=== PATIENT | male | born 1970 | race Asian ===

== ENCOUNTER 2019-12-03 10:04 | Emergency (ER) | payer MEDICAID, OTHER ==
[~2019-12-03] VITALS: Ht 160 cm; Wt 63.6 kg
[2019-12-03 12:34] LABS: BASOPHILS % (AUTO) 0.7 % (0.0-2.0); EOSINOPHILS % (AUTO) 6.5 % (1.0-6.0); HEMATOCRIT 43.2 % (41-53); HEMOGLOBIN 13.6 g/dL (13.5-17.5); LYMPHOCYTES # (AUTO) 1.2 K/uL (1.0-4.8); MEAN CORPUSCULAR HEMOGLOBIN 22.3 pg (26.0-34.0); MEAN CORPUSCULAR HGB CONC 31.6 G/dL (31.0-37.0); MEAN CORPUSCULAR VOLUME 71 fL (80-100); MONOCYTES # (AUTO) 0.5 K/uL (0.1-1.0); MONOCYTES % (AUTO) 10.6 % (2.0-9.0); NEUTROPHILS # (AUTO) 2.5 K/uL (1.8-7.7); NEUTROPHILS % (AUTO) 55.2 % (40.0-70.0); PLATELET COUNT (AUTO) 276 K/uL (150-450); RED BLOOD CELL COUNT(AUTO) 6.12 MIL/uL (4.50-5.90); RED CELL DISTRIBUTION WIDTH 15.5 % (11.5-14.5)
[2019-12-03 12:43] LABS: ANION GAP 3 mmol/L (8-16); CALCIUM, TOTAL 8.5 mg/dL (8.8-10.5); CARBON DIOXIDE 31 mmol/L (22-29); CHLORIDE 103 mmol/L (98-107); CREATININE 1.26 mg/dL (0.60-1.30); GLOMERULAR FILTR. RATE CALC > 60 mL/min (>60); GLUCOSE,RANDOM 122 mg/dL (70-110); POTASSIUM 3.6 mmol/L (3.5-5.1); SODIUM SERUM 137 mmol/L (136-145); UREA NITROGEN, BLOOD 14 mg/dL (7-18)
[2019-12-03 12:49] LABS: ALANINE AMINOTRANSFERASE 28 U/L (12-78); ALBUMIN 3.8 g/dL (3.4-5.0); ALKALINE PHOSPHATASE 92 U/L (46-116); ASPARTATE AMINOTRANSFERASE 14 U/L (15-37); BILIRUBIN,TOTAL 0.7 mg/dL (0.1-1.0)
[2019-12-03 12:53] VITALS: BP 118/59
== END 2019-12-03 12:47 | disposition left against medical advice (07) ==
LOC: EMS 10:10
DX: R45.6 Violent behavior (principal); F20.9 Schizophrenia, unspecified
CPT/HCPCS: 36415; 80053; 85025; 99283; G0480

== ENCOUNTER 2019-12-09 13:55 | Inpatient (IN) | payer MEDICAID, OTHER ==
[~2019-12-09] VITALS: Ht 160 cm; Wt 83.5 kg
[2019-12-09] MEDS ORDERED: LIDOCAINE 1% 10 ML VIAL INJ ONE (14:45)
[2019-12-09] MEDS ORDERED: HALOPERIDOL 5 MG TABLET PO PRN (17:45)
[2019-12-09] MEDS ORDERED: ZOLPIDEM TARTRATE 10 MG TABLET PO PRN (17:45)
[2019-12-09 21:54] VITALS: BP 130/77
[2019-12-09 21:55] VITALS: BP 130/77
[2019-12-10 04:32] VITALS: BP 119/68
[2019-12-10] MEDS ORDERED: ALBUTEROL SULFATE HFA 90 MCG/PUFF 8 GM INHALER IH PRN (08:30)
[2019-12-10] MEDS ORDERED: MAGNESIUM HYDROXIDE SUSPENSION 30 ML UDCUP PO PRN (08:30)
[2019-12-10] MEDS ORDERED: DOCUSATE SODIUM 100 MG CAPSULE PO PRN (08:30)
[2019-12-10] MEDS ORDERED: LOPERAMIDE HCL 2 MG CAPSULE PO PRN (08:30)
[2019-12-10] MEDS ORDERED: IBUPROFEN 400 MG TABLET PO PRN (08:30)
[2019-12-10] MEDS ORDERED: MAG HYDROX/AL HYDROX/SIMETH ES 30 ML SUSPENSION UDCUP PO PRN (08:30)
[2019-12-10] MEDS ORDERED: PETROLATUM,WHITE 28 GM JELLY TP PRN (08:30)
[2019-12-10] MEDS ORDERED: GuaiFENesin/D-METHORPHAN [SUGAR-FREE] 200-20MG/10 ML SYRUP UDCUP PO PRN (08:30)
[2019-12-10] MEDS ORDERED: CloNIDine HCL 0.1 MG TABLET PO PRN (08:30)
[2019-12-10] MEDS ORDERED: ONDANSETRON HCL 4 MG TABLET PO PRN (08:30)
[2019-12-10] MEDS ORDERED: NICOTINE 14 MG/24 HOUR PATCH TD PRN (08:30)
[2019-12-10 08:37] VITALS: BP 94/61
[2019-12-10] MEDS: NICOTINE 14 MG/24 HOUR PATCH TD SCH (09:17)
[2019-12-10] MEDS: BACITRACIN 28.4 GM OINTMENT TP SCH (09:40)
[2019-12-10] MEDS: FLUoxetine HCL 20 MG CAPSULE PO SCH (12:25)
[2019-12-10] MEDS: OLANZapine 5 MG TABLET PO SCH ×2 (12:25→20:13)
[2019-12-10 16:21] VITALS: BP 128/69
[2019-12-10] MEDS: LORazepam 2 MG TABLET PO PRN (20:13)
[2019-12-11 05:22] VITALS: BP 120/62
[2019-12-11 08:18] VITALS: BP 109/48
[2019-12-11] MEDS: BACITRACIN 28.4 GM OINTMENT TP SCH (08:52)
[2019-12-11] MEDS: FLUoxetine HCL 20 MG CAPSULE PO SCH (08:52)
[2019-12-11] MEDS: NICOTINE 14 MG/24 HOUR PATCH TD SCH (08:52)
[2019-12-11] MEDS: OLANZapine 5 MG TABLET PO SCH ×2 (08:52→20:10)
[2019-12-11 16:02] VITALS: BP 115/70
[2019-12-11] MEDS: LORazepam 2 MG TABLET PO PRN (20:10)
[2019-12-12 08:25] VITALS: BP 119/73
[2019-12-12] MEDS: FLUoxetine HCL 20 MG CAPSULE PO SCH (09:18)
[2019-12-12] MEDS: NICOTINE 14 MG/24 HOUR PATCH TD SCH (09:18)
[2019-12-12] MEDS: OLANZapine 5 MG TABLET PO SCH ×2 (09:18→20:56)
[2019-12-12] MEDS: BACITRACIN 28.4 GM OINTMENT TP SCH (09:45)
[2019-12-12 16:33] VITALS: BP 111/72
[2019-12-13 08:09] VITALS: BP 115/77
[2019-12-13] MEDS: FLUoxetine HCL 20 MG CAPSULE PO SCH (09:03)
[2019-12-13] MEDS: NICOTINE 14 MG/24 HOUR PATCH TD SCH (09:03)
[2019-12-13] MEDS: OLANZapine 5 MG TABLET PO SCH ×2 (09:03→20:27)
[2019-12-13] MEDS: BACITRACIN 28.4 GM OINTMENT TP SCH (11:31)
[2019-12-13] MEDS: LORazepam 2 MG TABLET PO PRN (13:14)
[2019-12-13 16:14] VITALS: BP 130/83
[2019-12-14 07:15] VITALS: BP 132/80
[2019-12-14 08:08] VITALS: BP 118/68
[2019-12-14] MEDS: FLUoxetine HCL 20 MG CAPSULE PO SCH (08:18)
[2019-12-14] MEDS: NICOTINE 14 MG/24 HOUR PATCH TD SCH (08:18)
[2019-12-14] MEDS: BACITRACIN 28.4 GM OINTMENT TP SCH (08:18)
[2019-12-14] MEDS: OLANZapine 5 MG TABLET PO SCH ×2 (08:18→20:18)
[2019-12-14 16:06] VITALS: BP 126/66
[2019-12-14] MEDS: LORazepam 2 MG TABLET PO PRN (16:43)
[2019-12-15 04:53] VITALS: BP 128/82
[2019-12-15 08:12] VITALS: BP 121/61
[2019-12-15] MEDS: MULTIVITAMINS WITH MINERALS, THERAPEUTIC TABLET PO SCH (08:44)
[2019-12-15] MEDS: FLUoxetine HCL 20 MG CAPSULE PO SCH (08:44)
[2019-12-15] MEDS: OLANZapine 5 MG TABLET PO SCH ×2 (08:44→20:35)
[2019-12-15] MEDS: NICOTINE 14 MG/24 HOUR PATCH TD SCH (08:45)
[2019-12-15] MEDS: BACITRACIN 28.4 GM OINTMENT TP SCH (08:45)
[2019-12-15 16:21] VITALS: BP 115/60
[2019-12-16 04:20] VITALS: BP 108/64
[2019-12-16 08:15] VITALS: BP 129/69
[2019-12-16] MEDS: OLANZapine 5 MG TABLET PO SCH ×2 (08:58→22:45)
[2019-12-16] MEDS: MULTIVITAMINS WITH MINERALS, THERAPEUTIC TABLET PO SCH (08:58)
[2019-12-16] MEDS: FLUoxetine HCL 20 MG CAPSULE PO SCH (08:58)
[2019-12-16] MEDS: NICOTINE 14 MG/24 HOUR PATCH TD SCH (09:00)
[2019-12-16] MEDS: BACITRACIN 28.4 GM OINTMENT TP SCH (09:00)
[2019-12-16 16:11] VITALS: BP 105/69
[2019-12-16] MEDS: ACETAMINOPHEN 325 MG TABLET PO PRN (19:42)
[2019-12-17 04:48] VITALS: BP 122/70
[2019-12-17 08:06] VITALS: BP 100/58
[2019-12-17] MEDS: OLANZapine 5 MG TABLET PO SCH ×2 (08:11→20:21)
[2019-12-17] MEDS: MULTIVITAMINS WITH MINERALS, THERAPEUTIC TABLET PO SCH (08:11)
[2019-12-17] MEDS: FLUoxetine HCL 20 MG CAPSULE PO SCH (08:11)
[2019-12-17] MEDS: NICOTINE 14 MG/24 HOUR PATCH TD SCH (08:16)
[2019-12-17] MEDS: BACITRACIN 28.4 GM OINTMENT TP SCH (08:17)
[2019-12-17 16:00] VITALS: BP 101/63
[2019-12-18 05:56] VITALS: BP 114/68
[2019-12-18] MEDS: OLANZapine 5 MG TABLET PO SCH (08:48)
[2019-12-18] MEDS: MULTIVITAMINS WITH MINERALS, THERAPEUTIC TABLET PO SCH (08:48)
[2019-12-18] MEDS: FLUoxetine HCL 20 MG CAPSULE PO SCH (08:49)
[2019-12-18] MEDS: BACITRACIN 28.4 GM OINTMENT TP SCH (08:49)
[2019-12-18] MEDS: NICOTINE 14 MG/24 HOUR PATCH TD SCH (09:04)
[2019-12-18] MEDS: DIVALPROEX SODIUM 500 MG DR TABLET PO SCH ×2 (12:22→20:25)
[2019-12-18 16:09] VITALS: BP 115/73
[2019-12-18] MEDS: LORazepam 2 MG TABLET PO PRN (19:30)
[2019-12-18] MEDS: OLANZapine 10 MG TABLET PO SCH (20:25)
[2019-12-19 05:26] VITALS: BP 118/79
[2019-12-19] MEDS: FLUoxetine HCL 20 MG CAPSULE PO SCH (08:06)
[2019-12-19] MEDS: OLANZapine 5 MG TABLET PO SCH (08:06)
[2019-12-19] MEDS: MULTIVITAMINS WITH MINERALS, THERAPEUTIC TABLET PO SCH (08:06)
[2019-12-19] MEDS: DIVALPROEX SODIUM 500 MG DR TABLET PO SCH ×2 (08:06→20:37)
[2019-12-19] MEDS: BACITRACIN 28.4 GM OINTMENT TP SCH (08:07)
[2019-12-19 08:32] VITALS: BP 117/73
[2019-12-19] MEDS: NICOTINE 14 MG/24 HOUR PATCH TD SCH (08:46)
[2019-12-19 17:00] VITALS: BP 129/82
[2019-12-19] MEDS: LORazepam 2 MG TABLET PO PRN (20:37)
[2019-12-19] MEDS: OLANZapine 10 MG TABLET PO SCH (20:37)
[2019-12-20 05:25] VITALS: BP 115/78
[2019-12-20 08:10] VITALS: BP 107/65
[2019-12-20] MEDS: FLUoxetine HCL 20 MG CAPSULE PO SCH (08:35)
[2019-12-20] MEDS: OLANZapine 5 MG TABLET PO SCH (08:35)
[2019-12-20] MEDS: NICOTINE 14 MG/24 HOUR PATCH TD SCH (08:35)
[2019-12-20] MEDS: MULTIVITAMINS WITH MINERALS, THERAPEUTIC TABLET PO SCH (08:35)
[2019-12-20] MEDS: DIVALPROEX SODIUM 500 MG DR TABLET PO SCH ×2 (08:35→20:23)
[2019-12-20] MEDS: BACITRACIN 28.4 GM OINTMENT TP SCH (08:36)
[2019-12-20] MEDS ORDERED: BACITRACIN 28.4 GM OINTMENT TP SCH (10:15)
[2019-12-20 16:04] VITALS: BP 118/69
[2019-12-20] MEDS: LORazepam 2 MG TABLET PO PRN (18:40)
[2019-12-20] MEDS: ACETAMINOPHEN 325 MG TABLET PO PRN (18:40)
[2019-12-20] MEDS: OLANZapine 10 MG TABLET PO SCH (20:23)
[2019-12-21 06:01] VITALS: BP 112/71
[2019-12-21] MEDS: FLUoxetine HCL 20 MG CAPSULE PO SCH (08:08)
[2019-12-21] MEDS: NICOTINE 14 MG/24 HOUR PATCH TD SCH (08:08)
[2019-12-21] MEDS: BACITRACIN 28.4 GM OINTMENT TP SCH (08:08)
[2019-12-21 08:10] VITALS: BP 123/74
[2019-12-21] MEDS: OLANZapine 5 MG TABLET PO SCH (08:11)
[2019-12-21] MEDS: DIVALPROEX SODIUM 500 MG DR TABLET PO SCH ×2 (08:11→21:01)
[2019-12-21] MEDS: MULTIVITAMINS WITH MINERALS, THERAPEUTIC TABLET PO SCH (08:11)
[2019-12-21 16:04] VITALS: BP 109/68
[2019-12-21] MEDS: OLANZapine 10 MG TABLET PO SCH (21:01)
[2019-12-22 00:50] VITALS: BP 115/59
[2019-12-22 08:04] VITALS: BP 105/66
[2019-12-22] MEDS: FLUoxetine HCL 20 MG CAPSULE PO SCH (08:35)
[2019-12-22] MEDS: OLANZapine 5 MG TABLET PO SCH (08:35)
[2019-12-22] MEDS: MULTIVITAMINS WITH MINERALS, THERAPEUTIC TABLET PO SCH (08:35)
[2019-12-22] MEDS: DIVALPROEX SODIUM 500 MG DR TABLET PO SCH ×2 (08:35→20:11)
[2019-12-22] MEDS: BACITRACIN 28.4 GM OINTMENT TP SCH (09:00)
[2019-12-22] MEDS: NICOTINE 14 MG/24 HOUR PATCH TD SCH (09:00)
[2019-12-22 16:08] VITALS: BP 133/64
[2019-12-22] MEDS: OLANZapine 10 MG TABLET PO SCH (20:11)
[2019-12-22] MEDS: LORazepam 2 MG TABLET PO PRN (20:11)
[2019-12-23 06:13] VITALS: BP 112/78
[2019-12-23 08:02] VITALS: BP 110/78
[2019-12-23] MEDS: DIVALPROEX SODIUM 500 MG DR TABLET PO SCH ×2 (08:16→20:19)
[2019-12-23] MEDS: MULTIVITAMINS WITH MINERALS, THERAPEUTIC TABLET PO SCH (08:16)
[2019-12-23] MEDS: BACITRACIN 28.4 GM OINTMENT TP SCH (08:16)
[2019-12-23] MEDS: FLUoxetine HCL 20 MG CAPSULE PO SCH (08:16)
[2019-12-23] MEDS: NICOTINE 14 MG/24 HOUR PATCH TD SCH (08:16)
[2019-12-23] MEDS: OLANZapine 5 MG TABLET PO SCH (08:16)
[2019-12-23 16:06] VITALS: BP 125/76
[2019-12-23] MEDS: OLANZapine 10 MG TABLET PO SCH (20:19)
[2019-12-24 06:28] VITALS: BP 118/63
[2019-12-24 08:02] VITALS: BP 116/73
[2019-12-24] MEDS: DIVALPROEX SODIUM 500 MG DR TABLET PO SCH ×2 (08:15→20:29)
[2019-12-24] MEDS: MULTIVITAMINS WITH MINERALS, THERAPEUTIC TABLET PO SCH (08:15)
[2019-12-24] MEDS: FLUoxetine HCL 20 MG CAPSULE PO SCH (08:15)
[2019-12-24] MEDS: OLANZapine 5 MG TABLET PO SCH (08:15)
[2019-12-24] MEDS: BACITRACIN 28.4 GM OINTMENT TP SCH (08:39)
[2019-12-24] MEDS: NICOTINE 14 MG/24 HOUR PATCH TD SCH (09:20)
[2019-12-24 16:08] VITALS: BP 118/75
[2019-12-24] MEDS: LORazepam 2 MG TABLET PO PRN (20:29)
[2019-12-24] MEDS: OLANZapine 10 MG TABLET PO SCH (20:29)
[2019-12-25 05:58] VITALS: BP 117/72
[2019-12-25 08:27] VITALS: BP 109/75
[2019-12-25] MEDS: FLUoxetine HCL 20 MG CAPSULE PO SCH (08:40)
[2019-12-25] MEDS: DIVALPROEX SODIUM 500 MG DR TABLET PO SCH ×2 (08:40→20:24)
[2019-12-25] MEDS: MULTIVITAMINS WITH MINERALS, THERAPEUTIC TABLET PO SCH (08:40)
[2019-12-25] MEDS: OLANZapine 5 MG TABLET PO SCH (08:40)
[2019-12-25] MEDS: NICOTINE 14 MG/24 HOUR PATCH TD SCH (08:47)
[2019-12-25] MEDS: BACITRACIN 28.4 GM OINTMENT TP SCH (08:48)
[2019-12-25 16:08] VITALS: BP 110/71
[2019-12-25] MEDS: LORazepam 2 MG TABLET PO PRN (20:24)
[2019-12-25] MEDS: OLANZapine 10 MG TABLET PO SCH (20:24)
[2019-12-26 05:05] VITALS: BP 117/73
[2019-12-26 08:11] VITALS: BP 132/77
[2019-12-26] MEDS ORDERED: OLAN5TAB27 PO (08:27)
[2019-12-26] MEDS ORDERED: OLAN10TA20 PO (08:27)
[2019-12-26] MEDS ORDERED: FLUO-191 PO (08:27)
[2019-12-26] MEDS ORDERED: DIVA-112 PO (08:27)
[2019-12-26] MEDS: NICOTINE 14 MG/24 HOUR PATCH TD SCH (08:44)
[2019-12-26] MEDS: MULTIVITAMINS WITH MINERALS, THERAPEUTIC TABLET PO SCH (08:45)
[2019-12-26] MEDS: FLUoxetine HCL 20 MG CAPSULE PO SCH (08:45)
[2019-12-26] MEDS: BACITRACIN 28.4 GM OINTMENT TP SCH (08:45)
[2019-12-26] MEDS: DIVALPROEX SODIUM 500 MG DR TABLET PO SCH (08:45)
[2019-12-26] MEDS: OLANZapine 5 MG TABLET PO SCH (08:45)
== END 2019-12-26 13:20 | disposition home or self-care (01) | DRG 885 ==
LOC: EMS 13:56 → B3A 19:00
DX: F20.0 Paranoid schizophrenia (principal); R45.851 Suicidal ideations; S51.811A Laceration without foreign body of right forearm, initial encounter; F15.10 Other stimulant abuse, uncomplicated; G44.209 Tension-type headache, unspecified, not intractable; X78.9XXA Intentional self-harm by unspecified sharp object, initial encounter; Y93.89 Activity, other specified; Y92.89 Other specified places as the place of occurrence of the external cause; Y99.8 Other external cause status; Z79.899 Other long term (current) drug therapy
CPT/HCPCS: J3490